=== PATIENT | male | born 1950 | race Caucasian/White ===

== ENCOUNTER → 2021-09-22 11:25 | Outpatient (BNVA) | payer MEDICARE, SELFPAY | PROVIDERS: Visit Provider Nurse Practitioner Family | DX: R19.7 Diarrhea, unspecified (principal); R53.83 Other fatigue; R63.4 Abnormal weight loss; R19.8 Other specified symptoms and signs involving the digestive system and abdomen; I10 Essential (primary) hypertension; Z13.6 Encounter for screening for cardiovascular disorders | CPT/HCPCS: 74018; 80053; 80061; 84443; 85025 ==

== ENCOUNTER → 2021-09-28 10:19 | Outpatient (BNVA) | payer MEDICARE, SELFPAY | PROVIDERS: Referring Provider Nurse Practitioner Family; Visit Provider Nurse Practitioner Family | DX: R19.7 Diarrhea, unspecified (principal); R19.8 Other specified symptoms and signs involving the digestive system and abdomen | CPT/HCPCS: 83630; 87425; 87493; 87506 ==

== ENCOUNTER → 2023-01-26 09:19 | Outpatient (BNVA) | payer MEDICARE, SELFPAY | PROVIDERS: Visit Provider Family Medicine | DX: I10 Essential (primary) hypertension (principal); Z51.81 Encounter for therapeutic drug level monitoring; Z13.220 Encounter for screening for lipoid disorders; Z13.6 Encounter for screening for cardiovascular disorders | CPT/HCPCS: 80053; 80061; 85025 ==

== ENCOUNTER → 2023-06-27 10:57 | Outpatient (BNVA) | payer MEDICARE, SELFPAY | PROVIDERS: Visit Provider Psychiatry & Neurology Psychiatry | DX: F20.0 Paranoid schizophrenia (principal); R45.1 Restlessness and agitation; I10 Essential (primary) hypertension; Z79.899 Other long term (current) drug therapy | CPT/HCPCS: 83036 ==

== ENCOUNTER → 2024-01-26 09:33 | Outpatient (BNVA) | payer MEDICARE, SELFPAY | PROVIDERS: PCP Family Medicine; Visit Provider Family Medicine | DX: K21.9 Gastro-esophageal reflux disease without esophagitis (principal); I10 Essential (primary) hypertension; F20.0 Paranoid schizophrenia | CPT/HCPCS: 80053; 80061; 85025 ==

== ENCOUNTER → 2024-07-16 11:12 | Outpatient (BNVA) | payer MEDICARE, SELFPAY | PROVIDERS: PCP Family Medicine; Visit Provider Family Medicine | DX: I10 Essential (primary) hypertension (principal); Z87.440 Personal history of urinary (tract) infections; R50.9 Fever, unspecified; J18.9 Pneumonia, unspecified organism; F20.0 Paranoid schizophrenia; F03.90 Unspecified dementia, unspecified severity, without behavioral disturbance, psychotic disturbance, mood disturbance, and anxiety; R13.12 Dysphagia, oropharyngeal phase; Z09 Encounter for follow-up examination after completed treatment for conditions other than malignant neoplasm | CPT/HCPCS: 80053; 81000; 85025; 87086 ==

== ENCOUNTER → 2024-07-24 11:17 | Outpatient (BNVA) | payer MEDICARE, SELFPAY | PROVIDERS: PCP Family Medicine; Visit Provider Family Medicine | DX: J18.9 Pneumonia, unspecified organism (principal); R50.9 Fever, unspecified; Z87.440 Personal history of urinary (tract) infections; I10 Essential (primary) hypertension; F03.90 Unspecified dementia, unspecified severity, without behavioral disturbance, psychotic disturbance, mood disturbance, and anxiety | CPT/HCPCS: 71046; 80053; 81003; 85007; 85027; 87086 ==

== ENCOUNTER → 2024-08-01 14:35 | Outpatient (BNVA) | payer MEDICARE, SELFPAY | PROVIDERS: PCP Family Medicine; Visit Provider Family Medicine | DX: J18.9 Pneumonia, unspecified organism (principal); R93.89 Abnormal findings on diagnostic imaging of other specified body structures | CPT/HCPCS: 71046 ==

== ENCOUNTER 2024-08-06 16:33 | Outpatient (CLI) | payer MEDICARE, SELFPAY ==
[2024-08-06] MEDS: iohexol 350 mg/mL 500 mL Btl (per mL) IV (17:03)
--- NOTE | 2024-08-06 17:15 | CTR_ITS ---
PROCEDURE INFORMATION: Exam: CT Chest Without and With Contrast; Diagnostic Exam date and time: 08/06/2024 4:51 PM Age: 73 years old Clinical indication: Abnormal findings; Abnormal radiologic exam of lung or chest; Additional info: R91.8 - other nonspecific abnormal finding of lung field, schedule ian TECHNIQUE: Imaging protocol: Diagnostic computed tomography of the chest without and with contrast. Radiation optimization: All CT scans at this facility use at least one of these dose optimization techniques: automated exposure control; mA and/or kV adjustment per patient size (includes targeted exams where dose is matched to clinical indication); or iterative reconstruction. Contrast material: OMNI 350; Contrast volume: 100 ml; Contrast route: INTRAVENOUS (IV); COMPARISON: CR XR chest 2V* [id number] 08/01/2024 2:35 PM RADIATION DOSE METRICS: Total DLP (mGy-cm): 501.58 FINDINGS: Lungs: Few scattered additional patchy opacities in the bilateral mid and lower lungs. The bilateral upper lobes are relatively clear. Pleural spaces: Few regions of pleural calcifications in the dependent right lower lobe. Heart: Moderate coronary vessel atherosclerosis.. Normal heart size. No pericardial fluid. Lymph nodes: Few small calcified subcarinal and right hilar lymph nodes, suggestive of prior granulomatous infection. Vasculature: Ascending aortic aneurysm measuring 4.2 x 4.2 cm. Adrenal glands: Left adrenal nodule measuring 2.4 x 1.9 cm axial, attenuating up to 13 Hounsfield units. Bones/joints: Remote, healed fractures of the right posterior 7th and 8th ribs. Immediately anterior/abutting these fractures are cystic/necrotic lesions in the right lung measuring approximately 6.6 x 8.7 cm axial in the superior portion of the right lower lobe, and more posteriorly, immediately anterior to the right posterior 7th and 8th rib fractures and possibly invading the pleura is a collection measuring approximately 3.7 x 5.8 cm axial. Soft tissues: Unremarkable. CT/CT chest wo/w con [id number] IMPRESSION: Findings suggestive of bilateral mid and lower lobe pneumonia with abscesses in the right lower lobe. Left adrenal nodule measuring 2.4 x 1.9 cm axial, attenuating up to 13 Hounsfield units. May represent adenoma, however if there is history of malignancy metastatic disease not excluded. According to clinical discretion dedicated CT abdomen pelvis with adrenal protocol can be obtained non for complete evaluation.
== END 2024-08-06 16:34 | disposition home or self-care (01) ==
LOC: RAD 16:36
PROVIDERS: PCP Family Medicine; Visit Provider Family Medicine
DX: J85.1 Abscess of lung with pneumonia (principal); J84.10 Pulmonary fibrosis, unspecified; I71.21 Aneurysm of the ascending aorta, without rupture; D35.02 Benign neoplasm of left adrenal gland; Z87.311 Personal history of (healed) other pathological fracture
CPT/HCPCS: 71270; 80053; 81000; 85025; 87086

== ENCOUNTER → 2025-01-25 09:05 | Outpatient (BNVA) | payer MEDICARE, SELFPAY | PROVIDERS: PCP Family Medicine; Visit Provider Family Medicine | DX: I10 Essential (primary) hypertension (principal); F20.0 Paranoid schizophrenia; F03.90 Unspecified dementia, unspecified severity, without behavioral disturbance, psychotic disturbance, mood disturbance, and anxiety; Z13.220 Encounter for screening for lipoid disorders; Z13.6 Encounter for screening for cardiovascular disorders; Z51.81 Encounter for therapeutic drug level monitoring; R91.8 Other nonspecific abnormal finding of lung field; R93.89 Abnormal findings on diagnostic imaging of other specified body structures; J18.9 Pneumonia, unspecified organism | CPT/HCPCS: 71046; 80053; 80061; 85025 ==